=== PATIENT | female | born 2005 | race Two or more races ===

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

== ENCOUNTER 2025-04-23 13:48 | Emergency (ER) | payer MEDICAID ==
[~2025-04-23] VITALS: Ht 160 cm; Wt 73.0 kg
[~2025-04-23 13:48] MED LIST changes: +LIDO30CR TOP; -PANT-47 PO; -RANI150T8 PO
[2025-04-23 13:54] VITALS: BP 138/70; PULSE 114; RESP 15; TEMP 97.9; O2SAT 99
--- NOTE | 2025-04-23 15:14 | Physician Documentation ---
History of Present Illness ~ Chief Complaint: Rash Stated Complaint: POISON OAK Time Seen by MD: 14:37 Primary Medical Doctor: [facility] HPI Patient is a 19-year-old female that presents to the emergency department for evaluation of a rash to her anterior posterior trunk bilateral upper extremities some onto her neck and face. Patient reports that she was outside last night tracking through [employer] with friends is concerned that she encountered poison jung or poison oak. She reports that the rash is itchy and appears to be spreading. Patient denies any fevers airway issues difficulty swallowing headache nausea vomiting or diarrhea. Medication Reconciliation Allergies: Coded Allergies: No Known Allergies (Unverified , 07/26/19) Scheduled PRN Lidocaine/Prilocaine (Lidocaine-Prilocaine Cream), 1 APPLIC TOP UD PRN for pain Past Medical History Past Medical History: No Pertinent History Past Surgical History: no surgical history Last Menstrual Period: Apr 16, 2025 Alcohol Use: None Drug Use: none Lives with: Family Lives In: Home Occupation: student Review of Systems ROS As stated above in the HPI, otherwise all systems are reviewed and negative. Physical Exam Vital Signs: Temperature: 97.9, Source: Temporal, Heart Rate: 114, Respiratory Rate: 15, BP: 138/70, Pulse Oximetry: 99, Weight: 73.000 Physical Exam VITALS: Reviewed and as above. GENERAL: Alert, no apparent distress. HEENT: Normocephalic, atraumatic, PERRL, EOMI, dry mucosa, no erythema RESPIRATORY: Lungs clear, normal breath sounds, no respiratory distress. CHEST: No accessory muscle use, no retractions CV: Regular rate, rhythm, no edema, no murmur, No: JVD GI: Soft, non-tender, bowels sounds present, no rebound, guarding, or rigidity BACK: No CVA tenderness, or swelling MUSCULOSKELETAL No deformities, no edema SKIN: Warm and dry, diffuse rash consistent with contact dermatitis across the anterior posterior torso bilateral upper extremities neck and small areas to the face. NEURO: Oriented x4, No motor or sensory deficit PSYCH: Normal mood and affect, no agitation Progress Results/Orders Results/Orders Completed Orders - ALVAREZ ALMONTEP Methylprednisolone Sod Succ (Solumedrol (04/23/25 14:45) Diphenhydramine Inj (Benadryl Inj.) (04/23/25 14:45) Vital Signs 04/23/25 13:54 Temp 97.9 Pulse 114 Resp 15 B/P (MAP) 138/70 Pulse Ox 99 Medical Decision Making Findings This patient presents with symptoms consistent with acute hypersensitivity reaction, likely acute allergic reaction. Presentation not consistent with acute anaphylaxis (lack of pulmonary, dermatologic, cardiovascular or GI symptoms, lack of hypotension or exposure to known allergen), angioedema, serum sickness (no recent drug exposure, lacks fevers, arthralgias). No evidence of airway compromise or shock at this time. Patient improved with H1/H2 blockers, steroids. No need for epinephrine has a presentation is consistent with exposure to environmental trigger or contact dermatitis. Discussed with patient patient to keep food diary, and to follow up with PMD for allergy testing. Return to the emergency department if you have any worsening or recurrent symptoms or any additional concerning symptoms that we discussed here today i.e. increased rash increased redness airway involvement difficulty swallowing or any other concerning symptoms. Differential Dx:Considerations: Include: Abscess, AIDS/HIV, Anthrax (cutaneous), Atopic dermatitis, Candidiasis, Contact dermatitis, Drug reaction, Erythema multiforme, Erysipelas, Gangrene, Herpes zoster, Herpes simplex, Hidradenitis suppurativa, Impetigo, Intertrigo, Lymes disease, Molluscum contagiosum, Osteomyelitis, Pediculosis, Pityriasis rosea, Psoriaisis, RMSF, Rosacea, Scabies, Scarlet fever, Tinea, Urticaria, Varicella, Viral exanthema, Other Departure Disposition: 01 HOME / SELF CARE / HOMELESS Impression: Primary Impression: Skin irritation Additional Impression: Allergic contact dermatitis Discharge Instructions: Contact Dermatitis, [id number], Pruritus Additional Instructions: This patient presents with symptoms consistent with acute hypersensitivity reaction, likely acute allergic reaction. Presentation not consistent with acute anaphylaxis (lack of pulmonary, dermatologic, cardiovascular or GI symptoms, lack of hypotension or exposure to known allergen), angioedema, serum sickness (no recent drug exposure, lacks fevers, arthralgias). No evidence of airway compromise or shock at this time. Patient improved with H1/H2 blockers, steroids. No need for epinephrine has a presentation is consistent with exposure to environmental trigger or contact dermatitis. Discussed with patient patient to keep food diary, and to follow up with PMD for allergy testing. Return to the emergency department if you have any worsening or recurrent symptoms or any additional concerning symptoms that we discussed here today i.e. increased rash increased redness airway involvement difficulty swallowing or any other concerning symptoms. Please take Tylenol or ibuprofen for discomfort as needed. You can take Benadryl 25 mg every 12 hours. You were given Benadryl here in the emergency department today so please do not take an additional dose until after 9:00 p.m. tonight Referrals: NO PRIMARY CARE PROVIDER (PCP) Education Educated: Patient Educated regarding: diagnosis, treatment, need for follow up Signature Scribe Signature: AScribed for Alvarez Almonte by CORWIN Vasquez . 04/23/25 15:20 Attestation: Scribed for Alvarez Almontep by CORWIN Vasquez . 04/23/25 15:20 ALVAREZ ALMONTE Apr 23, 2025 15:14
== END 2025-04-23 15:48 | disposition home or self-care (01) ==
LOC: ER 13:49
DX: L23.7 Allergic contact dermatitis due to plants, except food (principal); L98.8 Other specified disorders of the skin and subcutaneous tissue
CPT/HCPCS: 96372; 99284; J1200; J2919

== ENCOUNTER 2025-06-23 01:59 | Emergency (ER) | payer MEDICAID ==
[~2025-06-23] VITALS: Ht 160 cm; Wt 72.0 kg
[2025-06-23 02:03] VITALS: BP 124/76; PULSE 90; TEMP 96.9; O2SAT 100
--- NOTE | 2025-06-23 02:18 | Physician Documentation ---
History of Present Illness ~ Chief Complaint: Shortness of Breath Stated Complaint: FLU SYMPTOMS Time Seen by MD: 02:17 Primary Medical Doctor: [facility] HPI Patient presents to the emergency room with chief complaint of cough cold congestion with shortness of breath. Symptoms has been going on for the past few days. Family members with similar symptoms however they improved. Rangel bjective fevers. Denies one-sided leg pain. Denies peripheral edema. Medication Reconciliation Allergies: Coded Allergies: No Known Allergies (Unverified , 06/23/25) Scheduled PRN Lidocaine/Prilocaine (Lidocaine-Prilocaine Cream), 1 APPLIC TOP UD PRN for pain Past Medical History Past Medical History: No Pertinent History Past Surgical History: no surgical history Alcohol Use: None Drug Use: none Lives with: Family Lives In: Home Occupation: student Review of Systems ROS All review of systems negative except as per HPI Physical Exam Vital Signs: Temperature: 96.9, Source: Temporal, Heart Rate: 90, Respiratory Rate: 22, BP: 124/76, Pulse Oximetry: 100, Weight: 72.000 Physical Exam General: Patient is awake, alert, oriented x4 in no acute distress Head: Normocephalic and atraumatic. Eyes: Conjunctival normal. EOMI. PERRL. ENT: Mucous membranes moist. Neck: Supple, trachea is midline. Chest: Clear to auscultation bilaterally without rales, rhonchi, or wheezes. There is no accessory muscle use or retractions. Extremities: Normal strength. Normal range of motion. No deformities or edema. No calf tenderness to palpation Progress Results/Orders Results/Orders Orders - REYMUNDO TRIPP MD Chest,Single View (06/23/25 02:26) Completed Orders - REYMUNDO TRIPP MD Chest,Single View (06/23/25 02:26) Vital Signs 06/23/25 02:03 Temp 96.9 Pulse 90 Resp 22 B/P (MAP) 124/76 Pulse Ox 100 Medical Decision Making Additional information obtaine: N/A Findings Patient presents to the emergency room with a chief complaint of shortness of breath. Differentials include but are not limited to anxiety, CHF, pulmonary embolism, viral syndrome, pneumonia therefore chest x-ray performed which was reassuring. Patient's lungs are clear to auscultation with no leg symptoms and i do not feel patient requires investigation into possible pulmonary embolism. Suspect anxiety. Chest x-ray reassuring. Lungs clear to auscultation and she is saturating 100% on room air. When I am not in the room patient is speaking with friend at bedside smiling. Heart Score: 0 Differential Dx:Considerations: Include: anxiety Departure Disposition: HOME / SELF CARE / HOMELESS Impression: Primary Impression: Acute upper respiratory infection Condition: Stable Discharge Instructions: Upper Respiratory Infection, Adult Referrals: NO PRIMARY CARE PROVIDER (PCP) Signature Scribe Signature: No scribe Attestation: The note accurately reflects work and decisions made by me.Reymundo Tripp MD 06/23/25 02:23 REYMUNDO TRIPP MD Jun 23, 2025 02:18
--- NOTE | 2025-06-23 02:42 | RADIOLOGY REPORT ---
CHEST RADIOGRAPH Indication: cough Technique: Single frontal view of the chest was obtained COMPARISON: None FINDINGS: Lines and Tubes: None Lungs: Clear Pleura: No effusion. No pneumothorax. Cardiomediastinal contours: Unremarkable Bones: Unremarkable IMPRESSION: 1. No acute disease.
[2025-06-23] MEDS ORDERED: BENZ-38 PO (02:53)
[2025-06-23 02:54] VITALS: RESP 16
== END 2025-06-23 02:57 | disposition home or self-care (01) ==
LOC: ER 01:59
DX: J06.9 Acute upper respiratory infection, unspecified (principal)
CPT/HCPCS: 71045; 99283

== ENCOUNTER 2025-06-25 23:39 | Emergency (ER) | payer MEDICAID ==
[~2025-06-25] VITALS: Ht 160 cm; Wt 70.5 kg
[~2025-06-25 23:39] MED LIST changes: +BENZ-38 PO
[2025-06-25 23:52] VITALS: BP 118/77; PULSE 94; RESP 16; O2SAT 98
[2025-06-26 01:58] VITALS: TEMP 98.3
== END 2025-06-26 01:58 | disposition left against medical advice (07) ==
LOC: ER 23:40
DX: J02.9 Acute pharyngitis, unspecified (principal); H92.03 Otalgia, bilateral; R09.89 Other specified symptoms and signs involving the circulatory and respiratory systems; Z53.21 Procedure and treatment not carried out due to patient leaving prior to being seen by health care provider; R11.10 Vomiting, unspecified
CPT/HCPCS: 99281